=== PATIENT | female | born 1995 | race Caucasian/White ===

== ENCOUNTER 2018-04-28 13:10 | Emergency (ER) | payer BC, MEDICARE ==
[~2018-04-28] VITALS: Ht 162.6 cm; Wt 123.8 kg
[2018-04-28] MEDS ORDERED: TETANUS/DIPHTHERIA TOX ADULT 0.5 ML SYR IM ONE (14:15)
--- NOTE | 2018-04-28 14:21 | NUR ---
1415- Td 0.5mg given to right deltoid. Patient khari well. Tenivac (L) [id number] ([id number]
[2018-04-28 14:24] VITALS: BP 106/57
== END 2018-04-28 14:29 | disposition home or self-care (01) ==
LOC: ER 13:10
DX: L02.511 Cutaneous abscess of right hand (principal); W26.8XXA Contact with other sharp object(s), not elsewhere classified, initial encounter
CPT/HCPCS: 90714; 99282